=== PATIENT | female | born 1965 | race African-American/Black ===

== ENCOUNTER 2017-11-07 14:30 | Emergency (ER) | payer MEDICAID ==
[~2017-11-07] VITALS: Ht 175.3 cm; Wt 73.0 kg
[2017-11-07 14:54] VITALS: BP 125/66
[2017-11-07 15:59] LABS: CLARITY URINE CLOUDY (CLEAR); COLOR URINE YELLOW (YELLOW); KETONES URINE NEGATIVE (NEGATIVE); LEUKOCYTE ESTERASE URINE 3+ (NEGATIVE); NITRITE URINE NEGATIVE (NEGATIVE); OCCULT BLOOD URINE 3+ (NEGATIVE); PH URINE 7.5 (4.5-8.0); PROTEIN URINE NEGATIVE (NEGATIVE); SPECIFIC GRAVITY URINE 1.009 (1.005-1.030); UROBILINOGEN URINE 0.2 E.U./dL (0.2-1.0)
== END 2017-11-07 20:35 | disposition left against medical advice (07) ==
LOC: ER 15:44
DX: Z53.21 Procedure and treatment not carried out due to patient leaving prior to being seen by health care provider (principal)
CPT/HCPCS: 81003; 81025; 87077; 87086; 87186